=== PATIENT | female | born 1960 | race Caucasian/White ===

== ENCOUNTER 2017-06-09 10:40 | Emergency (ER) | payer OTHER, SELFPAY ==
[2017-06-09] MEDS ORDERED: predniSONE 20 MG TAB ONE (10:58)
--- NOTE | 2017-06-09 11:25 | RAD ---
THREE VIEWS OF THE LEFT KNEE: HISTORY: Left knee pain for two to three months. COMPARISON: None. FINDINGS: Three views of the left knee show no evidence of acute fracture or dislocation. There is moderate tr icompartmental osteophyte, consistent with osteoarthritis. No knee effusion is seen. IMPRESSION: Moderate left knee osteoarthritis without acute osseous abnormality. POS: [facility]
== END 2017-06-09 11:38 | disposition home or self-care (01) ==
LOC: SCSER 10:40
DX: M17.12 Unilateral primary osteoarthritis, left knee (principal); E78.5 Hyperlipidemia, unspecified; I10 Essential (primary) hypertension; F32.9 Major depressive disorder, single episode, unspecified; F17.210 Nicotine dependence, cigarettes, uncomplicated; Z79.899 Other long term (current) drug therapy
CPT/HCPCS: J7506

== ENCOUNTER 2017-08-12 09:49 | Outpatient (CLI) | payer OTHER ==
--- NOTE | 2017-08-13 09:19 | MMO ---
BILATERAL MAMMOGRAMS: DATE: 08/12/17 HISTORY: Screening mammography. COMPARISON: None. Baseline exam. FINDINGS: Scattered fibroglandular densities and benign-appearing calcifications are again demonstrated. No dom inant mass or suspicious calcifications. The study was evaluated with the assistance of computer-aided detection. IMPRESSION: BIRADS 1: Negative Suggest routine follow-up. POS: [facility]
== END 2017-08-12 09:50 | disposition home or self-care (01) ==
LOC: SCSMAMMO 09:49
PROVIDERS: ATTEND Internal Medicine
DX: Z12.31 Encounter for screening mammogram for malignant neoplasm of breast (principal)
CPT/HCPCS: 77067

== ENCOUNTER 2018-03-18 06:16 | Day surgery (SDC) | payer OTHER ==
[2018-03-17 14:38] VITALS: BMI 37.4
--- NOTE | 2018-03-18 02:11 | HP ---
SHORT STAY HISTORY AND PHYSICAL DATE OF ADMISSION: 03/18/2018 HISTORY OF PRESENT ILLNESS: This is a 57-year-old female comes for a colonoscopy for colon cancer ak luisito. The patient has no specific GI symptoms. Her bowel movements are regular. The patient tavarez s have family history of colon cancer. Apparently, her father had colon cancer. The patient never h ad a colonoscopy in the past. ALLERGIES: None. SOCIAL HISTORY: Patient is a smoker. She drinks alcohol socially. MEDICAL ILLNESSES: 1. Hypertension. 2. Hyperlipidemia. 3. Back pain. PHYSICAL EXAMINATION: VITAL SIGNS: Pulse is 70, blood pressure 130/80. HEENT: Conjunctivae clear. CARDIOVASCULAR SYSTEM: First and second heart sounds normal. LUNGS: Clear to auscultation. ABDOMEN: Soft to palpate. No organomegaly. No tenderness. No masses. ADMITTING DIAGNOSIS: A 57-year-old female with family history of colon cancer. The patient comes fo r a screening colonoscopy.
--- NOTE | 2018-03-18 08:23 | OP ---
DATE OF PROCEDURE: 03/18/2018 SURGEON: Kali Warren M.D. OPERATIVE PROCEDURE: Colonoscopy. PREOPERATIVE DIAGNOSIS: Colon cancer screening. POSTOPERATIVE DIAGNOSES: Incomplete colonoscopy due to poor bowel prep. The exam was aborted after reaching about 70 cm from the anal margin. PROCEDURE IN DETAIL: The patient was placed on her left lateral position and was given sedation by Anesthesia Department. A rectal exam was done before the scope was advanced into the rectum. No lesion felt on rectal exam. A Pentax video colonoscope was introduced in the rectum. The patient had dark brown stool coating the mucosa. Water was irrigated and washed out and the scope advanced into the colon. The prep is poor. The patient also has some retained vegetable material in the colon. Although water was externally region washed out, the exam was really not satisfactory. After reaching 70 cm, it was realized this is going to be a poor exam. Because of the above reason this was aborted. She did have sigmoid diverticular disease on exam. DISCHARGE PLANNING: This is a 57-year-old female who came for a colonoscopy for colon cancer screening. The colonoscopy was incomplete because of poor prep. The exam was done to about 70 cm and most likely around splenic flexure, proximal and transverse colon. Because of poor prep, it was very difficult to have a good exam. The plan is to bring the patient for a reattempt in the near future. LULU
== END 2018-03-18 08:30 | disposition home or self-care (01) ==
LOC: SDC 06:16
PROVIDERS: ATTEND Internal Medicine Gastroenterology
PROC: 0DJD8ZZ Inspection of Lower Intestinal Tract, Via Natural or Artificial Opening Endoscopic (ICD-10-PCS; principal; 2018-03-18)
DX: Z12.11 Encounter for screening for malignant neoplasm of colon (principal); K57.30 Diverticulosis of large intestine without perforation or abscess without bleeding; F17.210 Nicotine dependence, cigarettes, uncomplicated; I10 Essential (primary) hypertension; E78.5 Hyperlipidemia, unspecified; Z79.1 Long term (current) use of non-steroidal anti-inflammatories (NSAID); Z79.899 Other long term (current) drug therapy; Z80.0 Family history of malignant neoplasm of digestive organs; Z53.8 Procedure and treatment not carried out for other reasons

== ENCOUNTER 2018-12-28 08:59 | Outpatient (CLI) | payer OTHER ==
--- NOTE | 2018-12-28 09:42 | ULT ---
GALLBLADDER ULTRASOUND: INDICATION: Bloating. Abdominal pain. FINDINGS: Images of the gallbladder reveal 2 echogenic foci adherent to the gallbladder wall, each measuring 4- 5 mm most consistent with small gallbladder polyps. No evidence of shadowing gallstone. Gallbladder wall thickness is normal. The common duct is mildly prominent measured up to 1 cm. No evidence of intrahepatic ductal dilatati on. The visualized liver and right kidney appear unremarkable. The pancreas is partially imaged and is unremarkable as visualized. IMPRESSION: 1. Evidence of at least 2 small gallbladder polyps. No definite gallstone identified. 2. Mildly prominent common bile duct. Correlate with liver function tests. Consider further evalua tion with MRCP as clinically indicated. POS: [facility]
== END 2018-12-28 09:00 | disposition home or self-care (01) ==
LOC: SCSULT 08:59
PROVIDERS: ATTEND Internal Medicine
DX: R14.0 Abdominal distension (gaseous) (principal); K82.4 Cholesterolosis of gallbladder
CPT/HCPCS: 76705

== ENCOUNTER 2019-04-04 07:46 | Outpatient (CLI) | payer OTHER ==
--- NOTE | 2019-04-04 11:55 | NM ---
HEPATOBILIARY SCAN: HISTORY: Abdominal distention (gaseous). abdominal pain. RADIOPHARMACEUTICAL: Technetium 99m mebrofenin 5.5 millicuries injected intravenously. FINDINGS: There is good tracer extraction by the liver with prompt excretion into the biliary tract and small b owel loops and normal filling of the gallbladder. The calculated gallbladder ejection fraction follow ing an oral fatty meal measures 54%. IMPRESSION: Normal examination. POS: OFF
== END 2019-04-04 07:47 | disposition home or self-care (01) ==
LOC: NM 07:46
PROVIDERS: ATTEND Internal Medicine
DX: R14.0 Abdominal distension (gaseous) (principal)
CPT/HCPCS: 78227; A9537

== ENCOUNTER 2023-06-09 14:36 | Outpatient (CLI) | payer OTHER | END 2023-06-09 14:37 | disposition home or self-care (01) | LOC: SCSMRI 14:36 | PROVIDERS: ATTEND Psychiatry & Neurology Neurology | DX: G45.9 Transient cerebral ischemic attack, unspecified (principal); G45.3 Amaurosis fugax | CPT/HCPCS: 70551 ==